=== PATIENT | female | born 1955 | race Caucasian/White ===

== ENCOUNTER → 2017-10-10 | Outpatient (CLI) | payer OTHER ==
[~2017-10-10] MED LIST: Percocet 5-3251 EACH PO
== END | disposition home or self-care (01) ==
LOC: LAB 14:23
DX: R53.83 Other fatigue (principal)
CPT/HCPCS: 82306; 84443

== ENCOUNTER 2019-07-20 07:51 | Emergency (ER) | payer OTHER ==
[~2019-07-20] VITALS: Ht 160 cm; Wt 65.8 kg
[2019-07-20 09:01] LABS: Influenza A Negative (NEGATIVE); Influenza B Negative (NEGATIVE)
== END 2019-07-20 09:53 | disposition home or self-care (01) ==
LOC: ER 07:51
PROVIDERS: Emergency Medicine
DX: J02.9 Acute pharyngitis, unspecified (principal); J06.9 Acute upper respiratory infection, unspecified; F41.9 Anxiety disorder, unspecified; H92.01 Otalgia, right ear; Z88.0 Allergy status to penicillin; Z88.8 Allergy status to other drugs, medicaments and biological substances; Z88.5 Allergy status to narcotic agent
CPT/HCPCS: 87804; 99283

== ENCOUNTER 2019-11-06 12:58 | Emergency (ER) | payer OTHER ==
[~2019-11-06] VITALS: Ht 160 cm; Wt 68.0 kg
[2019-11-06 13:51] LABS: BASOPHILS ABSOLUTE AUTO 0.12 K/mm3 (0.00-0.23); BASOPHILS PERCENT AUTO 1 % (0-2); EOSINOPHILS ABSOLUTE AUTO 0.55 K/mm3 (0.00-0.68); EOSINOPHILS PERCENT AUTO 6 % (0-6); Hematocrit 40.4 % (33.0-51.0); IMMATURE GRAN ABSOLUTE AUTO 0.03 K/mm3 (0.00-0.10); IMMATURE GRAN PERCENT AUTO 0 % (0-1); LYMPHOCYTES ABSOLUTE AUTO 1.94 K/mm3 (0.84-5.20); LYMPHOCYTES PERCENT AUTO 22 % (21-46); MONOCYTES ABSOLUTE AUTO 0.42 K/mm3 (0.16-1.47); MONOCYTES PERCENT AUTO 5 % (4-13); Mean Corpuscular HGB 28.8 pg (26.0-34.0); Mean Corpuscular HGB Conc 32.2 g/dL (31.5-36.5); Mean Corpuscular Volume 89 fL (80-100); Mean Platelet Volume 9.2 fL (9.1-12.4); NEUTROPHILS ABSOLUTE AUTO 5.65 K/mm3 (1.96-9.15); NEUTROPHILS PERCENT AUTO 65 % (41-73); Platelet Count 408 K/mm3 (150-400); RDW Coefficient Variation 14.9 % (11.7-14.2); RDW Standard Deviation 48.9 fL (35.1-46.3); Red Blood Cell Count 4.52 M/mm3 (3.80-5.20); White Blood Cell Count 8.71 K/mm3 (4.00-11.30)
[2019-11-06 14:06] LABS: Alanine Aminotransfer (ALT/SGP 19 U/L (12-78); Albumin, Blood 4.1 g/dL (3.4-5.0); Albumin/Globulin Ratio 1.2 (0.8-1.8); Alk Phos 71 U/L (50-136); Anion Gap 6 mmol/L (6-16); Aspartate Aminotrans (AST/SGOT 20 U/L (12-37); Bilirubin, Total 0.3 mg/dL (0.1-1.0); Blood Urea Nitrogen 7 mg/dL (8-24); CO2, Blood 24 mmol/L (21-32); Calcium, Blood 9.2 mg/dL (8.5-10.1); Chloride, Blood 112 mmol/L (98-108); Creatinine, Blood 0.54 mg/dL (0.40-1.00); Globulin, Blood 3.4 g/dL (2.2-4.0); Glomerular Filtration Rate >60 (60-); Glucose, Blood 98 mg/dL (70-99); Sodium, Blood 142 mmol/L (136-145); Total Protein, Blood 7.5 g/dL (6.4-8.2); Troponin I <0.015 ng/mL (0.000-0.040)
[2019-11-06] MEDS ORDERED: Vanquish Caple1 EACH (15:25)
== END 2019-11-06 16:39 | disposition home or self-care (01) ==
LOC: ER 12:58
PROVIDERS: Physician Assistant
DX: R07.9 Chest pain, unspecified (principal); R05 Cough; G43.909 Migraine, unspecified, not intractable, without status migrainosus; Z88.0 Allergy status to penicillin; Z88.5 Allergy status to narcotic agent; Z88.8 Allergy status to other drugs, medicaments and biological substances; Z87.891 Personal history of nicotine dependence
CPT/HCPCS: 36415; 71046; 80053; 84484; 85025; 93005; 93010; 96374; 96375; 99284-25; J1885; J2405

== ENCOUNTER 2021-07-12 06:10 | Day surgery (SDC) | payer OTHER ==
[~2021-07-12] VITALS: Ht 162.6 cm; Wt 66.3 kg
[~2021-07-12 06:10] MED LIST changes: +Vanquish Caple1 EACH
[2021-07-12] MEDS ORDERED: SERT50 PO (07:03)
[2021-07-12] MEDS ORDERED: OMEP20ER PO (07:03)
[2021-07-12] MEDS ORDERED: ONDA4 (07:04)
--- NOTE | 2021-07-12 07:05 | NUR ---
07/12/21 0705 Grant Bertrand CALL LIGHT WITHIN REACH.
--- NOTE | 2021-07-12 08:47 | NUR ---
07/12/[address] HAD 3 LEAD EKG DONE IN PACU WHEN ARRIVED. STATED SHE WAS IN SOMETHING BUT NOW OUT OF WHATEVER IT WAS. NORMAL SINUS RHYTHM.
--- NOTE | 2021-07-12 09:57 | NUR ---
07/12/21 0957 MITCHELL HERRING TRAMADOL GIVEN FOR HEADACHE.
== END 2021-07-12 09:20 | disposition home or self-care (01) ==
LOC: ORSCSDS 06:10 → ORD 07:30 → ORSCSDS 09:20
PROVIDERS: Surgery
PROC: 0JBN0ZZ Excision of Right Lower Leg Subcutaneous Tissue and Fascia, Open Approach (ICD-10-PCS; principal; 2021-07-12 07:30)
DX: L72.0 Epidermal cyst (principal); K21.9 Gastro-esophageal reflux disease without esophagitis; Z87.891 Personal history of nicotine dependence; Z79.899 Other long term (current) drug therapy; Z79.82 Long term (current) use of aspirin
CPT/HCPCS: 88304; A9270; J0690; J1100; J2250; J2405; J2704; J3010; J7120

== ENCOUNTER 2021-11-17 11:32 | Day surgery (SDC) | payer OTHER ==
[~2021-11-17] VITALS: Ht 162.6 cm; Wt 63.7 kg
[~2021-11-17 11:32] MED LIST changes: +ALPR.5 PO; +Bentyl20 MG PO; +EXCEDRIN PO; +OMEP20ER PO; +ONDA4 PO; +SERT50 PO
== END 2021-11-17 14:09 | disposition home or self-care (01) ==
LOC: ORSCSDS 11:32
PROVIDERS: Internal Medicine Gastroenterology
PROC: 0DBK8ZX Excision of Ascending Colon, Via Natural or Artificial Opening Endoscopic, Diagnostic (ICD-10-PCS; principal; 2021-11-17 13:00)
PROC: 0DBE8ZX Excision of Large Intestine, Via Natural or Artificial Opening Endoscopic, Diagnostic (ICD-10-PCS; principal; 2021-11-17 13:00)
PROC: 0DBM8ZX Excision of Descending Colon, Via Natural or Artificial Opening Endoscopic, Diagnostic (ICD-10-PCS; principal; 2021-11-17 13:00)
DX: R10.84 Generalized abdominal pain (principal); R63.4 Abnormal weight loss; K52.9 Noninfective gastroenteritis and colitis, unspecified; R11.0 Nausea; D12.2 Benign neoplasm of ascending colon; D12.4 Benign neoplasm of descending colon; K57.30 Diverticulosis of large intestine without perforation or abscess without bleeding; K64.8 Other hemorrhoids; Z87.891 Personal history of nicotine dependence; F41.8 Other specified anxiety disorders; Z79.899 Other long term (current) drug therapy
CPT/HCPCS: 88305; J2250; J2704; J7120

== ENCOUNTER 2021-12-03 11:50 | Emergency (ER) | payer OTHER ==
[~2021-12-03] VITALS: Ht 162.6 cm; Wt 63.5 kg
[2021-12-03] MEDS ORDERED: ZEBUTAL 50-3251 EAC1 PO (13:23)
[2021-12-03] MEDS ORDERED: ONDA4ODT MM (13:23)
== END 2021-12-03 13:45 | disposition home or self-care (01) ==
LOC: ER 11:50
DX: G43.909 Migraine, unspecified, not intractable, without status migrainosus (principal); Z88.0 Allergy status to penicillin; Z88.5 Allergy status to narcotic agent; Z88.8 Allergy status to other drugs, medicaments and biological substances; Z79.899 Other long term (current) drug therapy; K21.9 Gastro-esophageal reflux disease without esophagitis
CPT/HCPCS: 36415; J0780; J1100; J1200; J7030

== ENCOUNTER 2024-10-23 07:37 | Inpatient (IN) | payer MEDICARE ==
[~2024-10-23] VITALS: Ht 160 cm; Wt 71.5 kg
[2024-10-23] VITALS (32 sets, daily range): BP systolic 99–137; BP diastolic 40–107
[~2024-10-23 07:37] MED LIST changes: +ACET500 PO; +ALEN70 PO; +CALCIUM 600 WI1 EAC1 PO; +DRIMINATE50 MG PO; +EXTRA PAIN REL1 EAC2 PO; +Inderal40 MG PO; +MULTI-VITAMIN1 EAC2 PO; +ONDA4ODT MM; +PANT40 PO; +PROP60 PO; +PROP80ER PO; +SUMA25 PO; +TOPI25 PO; +TRAM50 PO; +ZEBUTAL 50-3251 EAC1 PO
[2024-10-23] MEDS ORDERED: CeFAZolin Sodium 2,000 MG in NS 100 ML IV SCH (09:15)
[2024-10-23] MEDS ORDERED: Lactated Ringer's 1,000 ML IV SCH (09:15)
[2024-10-23] MEDS ORDERED: CeFAZolin Sodium 2,000 MG VIAL ONE (09:31)
[2024-10-23] MEDS ORDERED: Dexamethasone Sod Phos 10 MG/ML 1ML VIAL ONE (09:33)
[2024-10-23] MEDS ORDERED: FentaNYL Citrate 50 MCG/ML 2 ML Injection ONE ×2 (09:33→12:13)
[2024-10-23] MEDS ORDERED: propofoL 20 ML IV ONE (09:33)
[2024-10-23] MEDS ORDERED: Rocuronium Bromide 10 MG/ML 5ML Injection IV ONE (09:33)
[2024-10-23] MEDS ORDERED: Ondansetron HCl 2 MG / ML 2ML Vial ONE (09:33)
--- NOTE | 2024-10-23 09:35 | NUR ---
Wheelchaired into Day Surgery. History, Chart, Medications and Allergies reviewed before start of procedure. Pre-Op teaching done. Pt verbalizes understanding. Patient States Post-Procedure ride home has been arranged.
[2024-10-23] MEDS ORDERED: Ondansetron HCl 2 MG / ML 2ML Vial IV SCH (10:05)
[2024-10-23] MEDS ORDERED: Scopolamine Hydrobromide Patch TD SCH (10:05)
[2024-10-23] MEDS ORDERED: Bupivacaine 0.5% HCl 5 MG/ML 30MLVIAL ONE (10:14)
[2024-10-23] MEDS ORDERED: ePHEDrine Sulfate 50 MG/ML 1ML Injection ONE (10:42)
[2024-10-23] MEDS ORDERED: Sugammadex Sodium 200 MG/2ML SDV (100 MG/ML) ONE (11:15)
[2024-10-23] MEDS ORDERED: Metoclopramide HCl 5MG / ML 2ML Vial IV PRN (11:30)
[2024-10-23] MEDS ORDERED: HydrALAZINE HCl 20 MG / ML 1ML Vial IV PRN (11:30)
[2024-10-23] MEDS ORDERED: HYDROmorphone HCl/Pf 1MG SYR IV PRN (11:30)
[2024-10-23] MEDS ORDERED: FentaNYL Citrate 50 MCG/ML 2 ML Injection IV PRN ×2 (11:30)
[2024-10-23] MEDS ORDERED: Albuterol 2.5 MG/3 ML VIAL INH PRN (11:30)
[2024-10-23] MEDS ORDERED: ePHEDrine Sulfate 50 MG/ML 1ML Injection IV PRN (11:30)
[2024-10-23] MEDS ORDERED: HYDROmorphone HCl/Pf 1MG SYR ONE ×2 (12:25→12:46)
[2024-10-23] MEDS ORDERED: Ketorolac Tromethamine 30mg Vial ONE (13:10)
[2024-10-23] MEDS ORDERED: Ketorolac Tromethamine 15mg Vial IV ONE (13:10)
[2024-10-23] MEDS ORDERED: Midazolam HCl 1MG / ML 2ML Vial IV ONE (13:10)
[2024-10-23] MEDS ORDERED: Midazolam HCl 1MG / ML 2ML Vial ONE (13:11)
[2024-10-23] MEDS ORDERED: OxyCODONE 5 mg/Acetamin 325 mg TABLET PO PRN ×2 (13:25→13:50)
[2024-10-23] MEDS ORDERED: Ondansetron HCl 2 MG / ML 2ML Vial IV PRN (13:50)
[2024-10-23] MEDS ORDERED: FLU VACC TS2024-25(6MOS UP)/PF 45 MCG/0.5 ML SYRINGE IM SCH (13:50)
--- NOTE | 2024-10-23 14:20 | NUR ---
PATIENT AWAITING IN [facility] ASKING ABOUT PATIENT STATUS. INFORMED THAT PATIENT WAS STILL IN PACU AND I WASN'T SURE HOW MUCH LONGER. I INFORMED HIM IT SHOULDN'T BE TOO MUCH LONGER AND IF HE WOULD LIKE TO SIT IN OUT STEP DOWN UNIT UNTIL SHE COMES OUT. HE RATHER GO BACK TO CAR WHERE IT WAS MORE COMFORTABLE. VOLUNTEER EXCORTED HIM TO HIS CALL. I LOOKED INTO THE STATUS OF THE PATIENT IN PACU. I WAS INFORMED THAT PATIENT WAS GOING TO BE ADMITTED. I SPOKE WITH PATIENT AND ASKED IF I CAN INFORM THAT SHE WAS BEING ADMITTED AND SHE SAID YES. I WALKED OUTSIDE TO SEE PT'S AND INFORMED HIM THAT HIS WAS BEING ADMITTED AND SOMEONE WILL CALL HIM TOMORROW TO UPDATE HIM ON 'S STATUS. I WENT BACK TO PATIENT AND INFORMED MARIZA THAT WAS UPDATED WITH HER ADMISSION. INFORMED [employer] WELL.
--- NOTE | 2024-10-23 17:33 | NUR ---
SHIFT SUMMARY PT IS A/OX4. ON SURGICAL EXTENDED RELEASE RECOVERY. ON RA, SATS MAINTAINING >95%. PT HAS 4 PORT SITES COVERED WITH TEGADERM AND GAUZE, SITES ARE C/D/I. PT RECIEVED X1 DOSE OF PERCOCET PER MAR SINCE ARRIVING TO THE FLOOR. PT TEARFUL AND ANXIOUS AT TIMES. WHEN ASKED IF THE PT FEELS SAFE RETURNING HOME WITH HER THE PT EXPLAINS THAT ONCE SHE GETS THE PAIN UNDER CONTROL SHE WILL BE ABLE TO HANDLE HIM. WHEN ASKED IF HE IS EVER PHYSICAL SHE REFUSES TO ANSWER BUT BECOMES TEARFUL. THE PT DENIES WISHING TO SPEAK TO ANYBODY REGARDING THESE CONCERNS AT THIS TIME. THE PT RELAYS THAT SHE FEELS SAFE ENOUGH FOR HIM TO VISIT HER DURING HER HOSPITAL STAY.
[2024-10-23] MEDS ORDERED: SUMAtriptan succinate 50 MG Tab PO ONE (22:05)
[2024-10-24 01:15] VITALS: BP 115/87
[2024-10-24 04:55] VITALS: BP 105/71
--- NOTE | 2024-10-24 06:32 | NUR ---
HUMAN RESOURCES ASSOCIATE SUMMARY NO ACUTE CHANGES. Q4 POST SURGICAL ASSESSMENTS COMPLETE. PT C/O OF ABD PAIN, MED PER MAR EFFECTIVE. PT C/O OF MIGRAINE HEADACHE. CALL TO HOSPITALIST. PT TAKES IMATREX AT HOME 50MG. HOSPITALIST ORDERED 1X DOSE OF 50MG IMATREX. GIVEN WITH GOOD EFFECT. SCOPOLOMINE PATCH IN PLACE BEHIND LEFT EAR. CALL LIGHT ACCESSIBLE. CARE WILL CONTINUE UNTIL REPORT CAN BE GIVEN TO ONCOMING NURSE.
[2024-10-24 08:09] VITALS: BP 103/73
[2024-10-24] MEDS ORDERED: Percocet 5-3251 EACH PO (11:33)
--- NOTE | 2024-10-24 14:23 | NUR ---
PT DISCHARGED TO HOME. AT BEDSIDE AT TIME OF DISCHARGE. PT PROVIDED AND EDUCATED ON DISCHARGE INSTRUCTIONS. ALL VALUABLES RETURNED AND SENT HOME WITH THE PT.
== END 2024-10-24 13:52 | disposition home or self-care (01) | DRG 419 ==
LOC: ORSCMMR 07:37 → ORD 09:00 → MEDS 15:02 → ORSCMMR 15:02 → ENPENDDIS 10-24 10:03 → MEDS 10-24 13:52
PROVIDERS: ADMIT Surgery
PROC: 0FT44ZZ Resection of Gallbladder, Percutaneous Endoscopic Approach (ICD-10-PCS; principal; 2024-10-23 09:00)
DX: K80.10 Calculus of gallbladder with chronic cholecystitis without obstruction (principal); F41.8 Other specified anxiety disorders; K21.9 Gastro-esophageal reflux disease without esophagitis; M81.0 Age-related osteoporosis without current pathological fracture; F15.10 Other stimulant abuse, uncomplicated; Z87.891 Personal history of nicotine dependence; Z88.5 Allergy status to narcotic agent; Z88.0 Allergy status to penicillin; Z88.8 Allergy status to other drugs, medicaments and biological substances; Z79.899 Other long term (current) drug therapy; Z79.82 Long term (current) use of aspirin; Z98.890 Other specified postprocedural states; Z90.710 Acquired absence of both cervix and uterus; Z90.722 Acquired absence of ovaries, bilateral; Z90.79 Acquired absence of other genital organ(s)
CPT/HCPCS: 88304; A9270; C1729; J0690; J1100; J1171; J1885; J2250; J2405; J2704; J3010; J7120